=== PATIENT | female | born 1990 | race Caucasian/White ===

== ENCOUNTER 2018-01-30 11:01 | Emergency (ER) | payer MEDICAID ==
[2018-01-30 11:08] VITALS: RESP 16
[2018-01-30] MEDS ORDERED: Lidocaine 2% Inj (20ml) INFIL ONE (11:52)
[2018-01-30] MEDS ORDERED: Lidocaine 2% MPF (5 ml) Inj ONE (12:00)
--- NOTE | 2018-01-30 12:53 | C.PDOC ---
History Of Present Illness 27 y/o female, otherwise well, presents to the ED complaining that for the last 2 days she noted a raised painful lesion on 12 oclock jani of her anus. She reports the area is painful to touch. Otherwise she denies any rectal bleeding, abdominal pain, fever, chills, nausea, or vomiting. Time Seen by Provider: 01/30/18 11:35 Chief Complaint (Nursing): Abnormal Skin Integrity History Per: Patient History/Exam Limitations: no limitations Onset/Duration Of Symptoms: Days Current Symptoms Are (Timing): Still Present Past Medical History Reviewed: Historical Data, Nursing Documentation, Vital Signs Vital Signs: Last Vital Signs Temp 98 F 01/30/18 11:05 Pulse 77 01/30/18 11:05 Resp 16 01/30/18 11:05 BP 109/77 01/30/18 11:05 Pulse Ox 99 01/30/18 11:05 Family History: States: Unknown Family Hx - Social History Hx Tobacco Use: Yes Hx Alcohol Use: Yes Hx Substance Use: No - Immunization History Hx Tetanus Toxoid Vaccination: No Hx Influenza Vaccination: No Hx Pneumococcal Vaccination: No Review Of Systems Except As Marked, All Systems Reviewed And Found Negative. Constitutional: Negative for: Fever, Chills Gastrointestinal: Positive for: Rectal Pain. Negative for: Nausea, Vomiting, Abdominal Pain, Other (rectal bleeding) Skin: Positive for: Lesions (near rectum) Neurological: Negative for: Weakness, Numbness Physical Exam - Physical Exam Appears: Non-toxic, No Acute Distress Skin: Warm, Dry, Other (2 cm elongated abscess above the rectum, consistent w/ pilonidal cyst) Oral Mucosa: Moist Neck: Normal ROM Chest: Symmetrical Respiratory: No Accessory Muscle Use, Other (Speaking in full sentences) Extremity: Bilateral: Atraumatic, Normal ROM Neurological/Psych: Oriented x3, Normal Speech ED Course And Treatment O2 Sat by Pulse Oximetry: 99 (RA) Pulse Ox Interpretation: Normal - Incision & Drainage Of Abscess Anesthesia: Lidocaine 2% (5 cc) Prep Used: Betadine Procedure: Incised W/Scalpel Blade#: (11), Drained Pus (approximately 5cc), Irrigated Cavity W/Saline, Packed W/Gauze Medical Decision Making Medical Decision Making: Impression: Abscess, pilonidal cyst Plan: I&D performed, tolerated well by patient. Wound was packed, with sterile dressing applied. Patient counseled regarding course of discharge and follow up instructions. Disposition Counseled Patient/Family Regarding: Diagnosis, Need For Followup - Disposition Referrals: [facility] [Outside] Disposition: HOME/ ROUTINE Disposition Time: 12:50 Condition: STABLE Additional Instructions: Followup with your doctor, the clinic or the ED in 2-3 days for dressing change. Instructions: Pilonidal Cyst Forms: [facility] (Hebrew), General Discharge Instructions - POA Present On Arrival: None - Clinical Impression Clinical Impression: Abscess, Pilonidal cyst with abscess - Scribe Statement The provider has reviewed the documentation as recorded by the Ct David Provider Attestation: All medical record entries made by the Ct were at my direction and personally dictated by me. I have reviewed the chart and agree that the record accurately reflects my personal performance of the history, physical exam, medical decision making, and the department course for this patient. I have also personally directed, reviewed, and agree with the discharge instructions and disposition.
[2018-01-30 13:04] VITALS: BP 98/66; PULSE 71; TEMP 98.5
[2018-01-30 13:32] VITALS: O2SAT 99
== END 2018-01-30 13:05 | disposition home or self-care (01) ==
LOC: C.ER 11:01
DX: L05.01 Pilonidal cyst with abscess (principal)

== ENCOUNTER 2018-08-06 19:50 | Emergency (ER) | payer SELFPAY ==
[2018-08-06 20:14] VITALS: BP 109/72; PULSE 91; RESP 20; TEMP 98.3; O2SAT 99
--- NOTE | 2018-08-06 20:24 | C.PDOC ---
History Of Present Illness 27 y/o female presents to the ER complaining of minor left shoulder discomfort which has been present for the past 1 day. Patient stats that the pain began after she fell and landed on her left side.Patient denies having weakness and numbness. Time Seen by Provider: 08/06/18 20:11 Chief Complaint (Nursing): Upper Extremity Problem/Injury History Per: Patient History/Exam Limitations: no limitations Onset/Duration Of Symptoms: Days Current Symptoms Are (Timing): Still Present Severity: Moderate Past Medical History Reviewed: Historical Data, Nursing Documentation, Vital Signs Vital Signs: Last Vital Signs Temp 98.3 F 08/06/18 20:00 Pulse 91 H 08/06/18 20:00 Resp 20 08/06/18 20:00 BP 109/72 08/06/18 20:00 Pulse Ox 99 08/06/18 20:00 Primary Care Provider: FAMILY PROVIDER,NO - Medical History PMH: No Chronic Diseases Surgical History: No Surg Hx Family History: States: No Known Family Hx - Social History Hx Tobacco Use: Yes Hx Alcohol Use: Yes Hx Substance Use: No - Immunization History Hx Tetanus Toxoid Vaccination: No Hx Influenza Vaccination: No Hx Pneumococcal Vaccination: No Review Of Systems Except As Marked, All Systems Reviewed And Found Negative. Musculoskeletal: Positive for: Shoulder Pain (left shoulder pain) Neurological: Negative for: Weakness, Numbness Physical Exam - Physical Exam Appears: Non-toxic, No Acute Distress Skin: Normal Color, Warm, Dry Head: Atraumatic, Normacephalic Eye(s): bilateral: Normal Inspection Nose: Normal Oral Mucosa: Moist Neck: Supple Chest: Symmetrical Cardiovascular: Rhythm Regular Respiratory: Normal Breath Sounds, No Rales, No Rhonchi, No Wheezing Extremity: Normal ROM, No Tenderness (left shoulder), No Swelling (left shoulder) Neurological/Psych: Oriented x3, Normal Speech, Normal Motor, Normal Sensation ED Course And Treatment O2 Sat by Pulse Oximetry: 99 (RA) Pulse Ox Interpretation: Normal - Other Rad L shoulder X-Ray: Interpreted by Me (neg) Medical Decision Making Medical Decision Making: contusion of ADDucted L shoulder @ area of A/C joint x-ray neg tenderness is superficial argues against internal joint injury Disposition Doctor Will See Patient In The: Office Counseled Patient/Family Regarding: Studies Performed, Diagnosis - Disposition Referrals: Replaced By [facility] [Outside] [facility] [Outside] [facility] [Outside] [facility] [Outside] Sophia Truong MD [Staff Provider] - Disposition: HOME/ ROUTINE Disposition Time: 20:25 Condition: GOOD Additional Instructions: ice packs 1/2 hour per hour, nothing hot Advil/Motrin 400-600 mg every 6 hours as needed no Icy Hot no hot showers no massages outpatient follow-up w Ortho as needed call for appt Instructions: Contusion (DC), Shoulder Pain (DC) Forms: [employer] (Albanian) - Clinical Impression Clinical Impression: Contusion of shoulder, left - Scribe Statement The provider has reviewed the documentation as recorded by the Ct To Provider Attestation: All medical record entries made by the Torreyibe were at my direction and personally dictated by me. I have reviewed the chart and agree that the record accurately reflects my personal performance of the history, physical exam, [facility] decision making, and the department course for this patient. I have also personally directed, reviewed, and agree with the discharge instructions and disposition.
--- NOTE | 2018-08-07 10:15 | RAD ---
PROCEDURE: Radiographs of the Left Shoulder, three views HISTORY: s/p Fall COMPARISON: None available FINDINGS: BONES: No acute displaced fracture. The distal clavicle and underlying ribs appear intact. JOINTS: No acute dislocation. SOFT TISSUES: Soft tissues appear unremarkable. No evidence of radiopaque foreign body. IMPRESSION: No acute displaced fracture or dislocation evident. If symptoms persist or if there is continued clinical concern, x-ray follow-up in 7-10 days should be considered.
== END 2018-08-06 20:31 | disposition home or self-care (01) ==
LOC: C.ER 19:50
DX: S40.012A Contusion of left shoulder, initial encounter (principal); W18.30XA Fall on same level, unspecified, initial encounter